=== PATIENT | male | born 1965 | race Caucasian/White ===

== ENCOUNTER 2016-11-10 18:19 | Emergency (ER) | payer OTHER ==
[2016-11-10 18:55] VITALS: BP 107/69
--- NOTE | 2016-11-10 19:43 | UC ---
Throat Pain/Nasal Balaji HPI - HPI Summary HPI Summary: ST with slight nasal congestion and slight cough today. Son also dx with strep today. Denies fever, vomiting, or rash. - History of Current Complaint Chief Complaint: EDThroatPain Stated Complaint: SORE THROAT Time Seen by Provider: 11/10/16 19:33 Hx Obtained From: Patient Onset/Duration: Gradual Onset, Lasting Hours Severity: Mild Cough: Nonproductive Associated Signs & Symptoms: Negative: Fever, Vomiting - Allergies/Home Medications Allergies/Adverse Reactions: Allergies Allergy/AdvReac Type Severity Reaction Status Date / Time No Known Allergies Allergy Verified 04/10/15 07:42 Home Medications: Home Medications Cetirizine* [ZyrTEC 10 MG TAB*] 10 mg PO DAILY 11/10/16 [History Confirmed 11/10] PMH/Surg Hx/FS Hx/Imm Hx Endocrine History Of: Denies: Diabetes, Thyroid Disease Cardiovascular History Of: Denies: Cardiac Disorders, Hypertension Respiratory History Of: Reports: Asthma - WILL BRING INHALERS Denies: COPD GI/ History Of: Denies: Ulcer - Surgical History Surgical History: Yes Surgery Procedure, Year, and Place: WISDOM TEETH, 1989. URETHERAL STRICTURE, 1992. 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 Alcohol Use: None Substance Use Type: None Smoking Status (MU): Former Smoker Amount Used/How Often: PACK A DAY Have You Smoked in the Last Year: No When Did the Patient Quit Smoking/Using Tobacco: 1986 Review of Systems Constitutional: Negative Skin: Negative Eyes: Negative ENT: Sore Throat Respiratory: Cough Cardiovascular: Negative Gastrointestinal: Negative Genitourinary: Negative Motor: Negative Neurovascular: Negative Musculoskeletal: Negative Neurological: Negative Psychological: Negative All Other Systems Reviewed And Are Negative: Yes Physical Exam Triage Information Reviewed: Yes Appearance: Well-Appearing, No Pain Distress, Well-Nourished Vital Signs: Initial Vital Signs Temp 98.0 F 11/10/16 18:48 Pulse 88 11/10/16 18:48 Resp 16 11/10/16 18:48 BP 107/69 11/10/16 18:48 Pulse Ox 100 11/10/16 18:48 Vital Signs Reviewed: Yes Eye Exam: Normal Eyes: Positive: Conjunctiva Clear ENT: Positive: Hearing grossly normal, Pharyngeal erythema - mild, TMs normal. Negative: Tonsillar exudate Dental Exam: Normal Neck exam: Normal Neck: Positive: Supple, Nontender, No Lymphadenopathy Respiratory Exam: Normal Respiratory: Positive: Chest non-tender, Lungs clear, Normal breath sounds, No respiratory distress, No accessory muscle use Cardiovascular Exam: Normal Cardiovascular: Positive: RRR, No Murmur Musculoskeletal Exam: Normal Neurological Exam: Normal Neurological: Positive: Alert Psychological Exam: Normal Throat Pain/Nasal Course/Dx - Differential Dx/Diagnosis Provider Diagnoses: URI, likely viral Discharge - Discharge Plan Condition: Stable Disposition: HOME Patient Education Materials: Upper Respiratory Infection (ED) Additional Instructions: Rapid strep test negative.
== END 2016-11-10 20:13 | disposition home or self-care (01) ==
LOC: UCEAST 18:19
DX: J06.9 Acute upper respiratory infection, unspecified (principal); J45.909 Unspecified asthma, uncomplicated; Z87.891 Personal history of nicotine dependence
CPT/HCPCS: 87651; 99211; G0463

== ENCOUNTER 2017-11-10 06:39 | Day surgery (SDC) | payer OTHER ==
--- NOTE | 2017-11-01 10:28 | HP ---
PREOPERATIVE HISTORY AND PHYSICAL: DATE OF ADMISSION/SURGERY: 11/10/17 ATTENDING PHYSICIAN: Dr. Sharron Howe CHIEF COMPLAINT: Left ringer finger locking and triggering. HISTORY OF PRESENT ILLNESS: Musa is a 52-year-old man who has history of multiple trigger fingers on the left hand. He has a trigger finger of the ring finger, which locks every morning when he wakes up and continues to lock throughout the course of the day. He has had relief with surgical treatment of trigger fingers in the past and presents now for the same on the left ring finger. PAST MEDICAL HISTORY: Significant for: 1. Asthma. 2. Depression and anxiety. 3. Irritable bowel syndrome. PAST SURGICAL HISTORY: 1. [place] tooth removal. 2. Cystoscopy. 3. Trigger finger releases. 4. Other genitourinary procedure. MEDICATIONS: 1. Pulmicort inhaler 2 puffs twice daily. 2. Myrbetriq 25 mg p.o. daily. DRUG ALLERGIES: None. FAMILY HISTORY: Noncontributory. SOCIAL HISTORY: He lives with his spouse. 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 He is a former tobacco user, does not currently use tobacco. Denies alcohol use and does exercise regularly. REVIEW OF SYSTEMS: Positive for seasonal allergies, but otherwise negative for cephalic, cardiovascular, respiratory, gastrointestinal, genitourinary, other musculoskeletal, skin, neurologic, endocrine, and hematologic symptoms. PHYSICAL EXAMINATION GENERAL: He is a very healthy-appearing, very pleasant male in minimal distress at rest. VITAL SIGNS: He is 5 feet 7 inches, weighs 142 pounds. Pulse 92, blood pressure 118/76, temperature 97.2. HEENT: Unremarkable. He has good range of motion of his neck without pain. No masses are palpated. His eye movements are concentric. LUNGS: Clear to auscultation. Good inspiratory effort. No wheezing. CARDIAC: Regular rate and rhythm without murmur. PERIPHERAL VASCULAR: He has palpable pulses and no peripheral edema. EXTREMITIES: He has tenderness at the A1 mesfin of his left ringer finger and it locks when he makes the fist. He is able to unlock it by passively extending it. His neurovascular function is intact NEUROLOGIC: He is alert and oriented without focal deficits. SKIN: Intact. IMPRESSION: Left ring finger trigger finger. PLAN: For left ring finger trigger release. The surgical procedure, risks, and benefits were explained to the patient today and he agreed to proceed. I will see him back in followup for suture removal approximately 10 days postop. [id number]/[facility] #: [id number] JOSE JUAN
[~2017-11-10 06:39] MED LIST: Buffered Lidocaine 0.9% SYRIN* 5 ML/SYR SYRINGE INTRADERM ONE; Famotidine TAB* 20 MG PO ONE
[2017-11-10] MEDS ORDERED: Famotidine TAB* 20 MG ONE (07:11)
[2017-11-10] MEDS ORDERED: fentaNYL* 50 MCG/ML 2 ML VIAL (100 MCG VIAL) ONE (07:38)
[2017-11-10] MEDS ORDERED: Midazolam* 1 MG/ML 5 ML VIAL (5 MG) ONE (07:38)
[2017-11-10] MEDS ORDERED: Naloxone* 0.4 MG/ML 1 ML VIAL IV PRN (08:05)
[2017-11-10] MEDS ORDERED: Acetaminophen TAB* 325 MG PO PRN (08:05)
[2017-11-10] MEDS ORDERED: Lidocaine 2% PF * 5 ML VIAL ONE (08:16)
[2017-11-10] MEDS ORDERED: Ketorolac INJ* 30 MG/ML 1 ML VIAL ONE (08:16)
[2017-11-10] MEDS ORDERED: Ondansetron INJ* 2 MG/ML VIAL ONE (08:16)
[2017-11-10] MEDS ORDERED: Propofol* 10 MG/ML 20 ML BTL IV PUSH ONE (08:16)
[2017-11-10 09:28] VITALS: BP 110/65
--- NOTE | 2017-11-10 13:06 | OP ---
DATE OF OPERATION: 11/10/17 [facility] DATE OF : 63 SURGEON: Sharron Howe MD. ORACLE EBS ARCHITECT: LYSSA Perkins. ANESTHESIA: Local MAC. PRE-OP DIAGNOSIS: Left ring finger, trigger finger. POST-OP DIAGNOSIS: Left ring finger, trigger finger. OPERATIVE PROCEDURE: Left ring finger, trigger release. ESTIMATED BLOOD LOSS: Zero. TOURNIQUET TIME: About 5 minutes. INDICATIONS FOR PROCEDURE: Musa is a 52-year-old man with triggering and locking with left ring finger. He presents for trigger release. DESCRIPTION OF PROCEDURE: The patient was brought to the operating room, was given a sedation anesthetic and a local infiltration of 10 cc of 1% plain lidocaine in the palm of his left hand overlying the ring finger A1 mesfin. The skin of his left hand and forearm were prepped and draped in the usual sterile fashion. The hand and forearm were exsanguinated and the tourniquet elevated to 250 mmHg. A transverse incision was made centered over the A1 mesfin and we dissected bluntly through the subcutaneous tissue down to the A1 mesfin. The digital neurovascular bundles were retracted by the assembler surgical garment Elo Rodriguez. The A1 mesfin was incised longitudinally completely releasing the flexor tendons which were in good condition. The wound was irrigated and the skin edges reapproximated with 4-0 nylon suture. The wound was dressed with Xeroform, 4 x 4, Webril, and an elijah wrap. The patient tolerated the procedure well and was brought to the recovery room in good condition. [id number]/[facility] #: [id number] MTDD
== END 2017-11-10 09:50 | disposition home or self-care (01) ==
LOC: OREAST 06:39
PROVIDERS: ATTEND Orthopaedic Surgery
DX: M65.342 Trigger finger, left ring finger (principal); J45.909 Unspecified asthma, uncomplicated; F41.8 Other specified anxiety disorders; K58.9 Irritable bowel syndrome, unspecified; Z87.891 Personal history of nicotine dependence
CPT/HCPCS: A9270-GY; J1885; J2250; J2405; J2704; J3010

== ENCOUNTER 2019-01-29 19:34 | Emergency (ER) | payer OTHER ==
--- NOTE | 2019-01-29 19:41 | UC ---
HPI BURN - HPI Summary HPI Summary: 53 yo male presents with burn to left hand. 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 He removed the oven mitt and grabbed the skillet again without realizing and sustained a burn to his hand. He rinsed it under cool water, but began to form some blistering and continued to have pain - prompting his visit to . He is right handed. - History of Current Complaint Stated Complaint: BURN ON HAND Time Seen by Provider: 01/29/19 19:41 Hx Obtained From: Patient Length of Exposure: Seconds Onset Severity: Severe Current Severity: Severe Pain Intensity: 9 Pain Scale Used: 0-10 Numeric Character: Blisters: Intact Alleviating Factor(s): Cool Soaks Associated Signs & Symptoms: Positive: Negative - Allergy/Home Medications Allergies/Adverse Reactions: Allergies Allergy/AdvReac Type Severity Reaction Status Date / Time No Known Allergies Allergy Verified 01/29/19 19:55 Home Medications: Home Medications Acetaminophen [Tylenol Extra Strength] 1,000 mg PO Q12HR PRN 01/29/19 [History Confirmed 01/29/19] Creatinine 1 pow XX DAILY 01/29/19 [History Confirmed 01/29/19] Loratadine [Claritin 10 MG CAP] 10 mg PO DAILY 01/29/19 [History Confirmed 01/29] Magnesium [Magnesium Elemental] 30 mg PO DAILY 01/29/19 [History Confirmed 01/29] PMH/Surg Hx/FS Hx/Imm Hx Respiratory History: Asthma Psychological History: Anxiety, Depression - Surgical History Surgical History: Yes Surgery Procedure, Year, and Place: WISDOM TEETH, 1989. URETHERAL STRICTURE, 1992. VARICOCELE 1993. 2 TRIGGER FINGER RELEASE - Family History Known Family History: Positive: Non-Contributory Negative: Blood Disorder - Social History Occupation: Employed Full-time Lives: With Family Alcohol Use: None Substance Use Type: None Smoking Status (MU): Former Smoker Amount Used/How Often: PACK A DAY X 6 YRS Have You Smoked in the Last Year: No When Did the Patient Quit Smoking/Using Tobacco: 1986 Review of Systems All Other Systems Reviewed And Are Negative: Yes Constitutional: Positive: Negative Skin: Positive: Other - Burn left hand Respiratory: Positive: Negative Cardiovascular: Positive: Negative Neurovascular: Positive: Negative Musculoskeletal: Positive: Negative Neurological: Positive: Negative Psychological: Positive: Negative Physical Exam - Summary Physical Exam Summary: GENERAL: NAD. WDWN. No pain distress. SKIN: LEFT HAND: 2nd, 3rd, and 4th finger pads with flesh colored 6-8mm flat blister formation. At base of 4th and 3rd digits palmar aspect with 1.5cm oval flat blister. No ruptured blisters, open wounds, necrotic or eschar. CHEST: No accessory muscle use. Breathing comfortably and in no distress. CV: Pulses intact. Cap refill <2seconds MSK: FROM at all digits PIPs, DIPs, and MCPs left hand. NEURO: Alert. PSYCH: Age appropriate behavior. Triage Information Reviewed: Yes Vital Signs: Vital Signs: Temp Pulse Resp BP Pulse Ox 98.4 F 91 18 138/91 95 01/29/19 19:58 01/29/19 19:58 01/29/19 19:58 01/29/19 19:58 01/29/19 19:58 Vital Signs Reviewed: Yes Burn Calculation - [place] Formula for Fluid Resuscitation 24 -Hour Fluid Replacement: 0.0 Course/Dx Burn - Course Course Of Treatment: Second degree burn to left hand <1% TBSA. In the clinic, his wedding ring on his 4th digit was able to be removed. He was given tramadol and toradol for his pain. Dr. Penny also visualized the andujar and we discussed appropriate dressings. The wounds were dressed with xeroform BT --> telfa --> kerlix. I will prescribe him percocet for discomfort and have him leave the dressing intact for the next 24 hours before removing and changing. Highly recommended a wound check in 2 days with PCP. - Diagnoses Provider Diagnosis: Burn of hand, left, second degree Discharge - Sign-Out/Discharge Documenting (check all that apply): Patient Departure All imaging exams completed and their final reports reviewed: No Studies - Discharge Plan Condition: Stable Disposition: HOME Prescriptions: oxyCODONE/Acetamin 5/325 MG* [Percocet 5/325 TAB*] 1 tab PO Q6H PRN #12 tab MDD 4 PRN Reason: Pain Patient Education Materials: Second Degree Burn (ED) Referrals: Shauna Larios MD [Primary Care Provider] - 2 Days Additional Instructions: If you develop a fever, shortness of breath, chest pain, new or worsening symptoms - please call your PCP or go to the ED immediately. Your blood pressure was high at todays visit. Please see your primary provider within 4 weeks for recheck and re-evaluation. Keep the dressing clean, dry, and intact for the next 24 hours and then may remove and apply bacitracin and a bandaid to the areas. I strongly recommend that you follow up with your primary doctor in 2 days for a wound check to make sure the andujar are healing well. May take ibuprofen as directed for discomfort in addition to the percocet. - Billing Disposition and Condition Condition: STABLE Disposition: Home
[2019-01-29 20:00] VITALS: BP 138/91
[2019-01-29] MEDS ORDERED: Ketorolac *IM* INJ* 60 MG/2 ML VIAL IM ONE (20:07)
[2019-01-29] MEDS ORDERED: oxyCODONE/Acetamin 5/325 MG* TAB PO ONE (20:07)
[2019-01-29] MEDS ORDERED: traMADol TAB* 50 MG PO ONE (20:22)
== END 2019-01-29 20:25 | disposition home or self-care (01) ==
LOC: UCEAST 19:34
DX: T23.252A Burn of second degree of left palm, initial encounter (principal); T31.0 Burns involving less than 10% of body surface; X19.XXXA Contact with other heat and hot substances, initial encounter; Y93.G3 Activity, cooking and baking; Y92.010 Kitchen of single-family (private) house as the place of occurrence of the external cause; Y99.8 Other external cause status; J45.909 Unspecified asthma, uncomplicated; F41.9 Anxiety disorder, unspecified; F32.9 Major depressive disorder, single episode, unspecified; Z87.891 Personal history of nicotine dependence
CPT/HCPCS: 16000; 96372; 99213; A9270-GY; G0463; J1885

== ENCOUNTER 2019-01-31 09:10 | Emergency (ER) | payer OTHER ==
[2019-01-31 09:17] VITALS: BP 111/70
--- NOTE | 2019-01-31 09:45 | UC ---
HPI Wound/Suture Re-check - HPI Summary HPI Summary: Pt here for recheck of 2nd andujar to left hand pt was evaluated at 2 days ago - grabbed hot amaya, blisters to index, middle and 5th digit as well as MCP 4th finger - all palmar aspect. Pt states his pain is nearly resolved. no reddness no weakness, no open wounds Pt was advised for a wound recheck - states could not get into PCP so came here - no concerns - satisfy with wound healing Unknown last tdap - called office - 2011 not immunocompromised no analgesia taken meds reviewed - History Of Current Complaint Chief Complaint: UCBurn Stated Complaint: WOUND RECHECK Time Seen by Provider: 01/31/19 09:44 Hx Obtained From: Patient, Medical Records Pain Intensity: 0 - Allergies/Home Medications Allergies/Adverse Reactions: Allergies Allergy/AdvReac Type Severity Reaction Status Date / Time No Known Allergies Allergy Verified 01/29/19 19:55 PMH/Surg Hx/FS Hx/Imm Hx Previously Healthy: Yes - Surgical History Surgical History: Yes Surgery Procedure, Year, and Place: WISDOM TEETH, 1989. URETHERAL STRICTURE, 1992. VARICOCELE 1993. 2 TRIGGER FINGER RELEASE - Family History Known Family History: Positive: Non-Contributory Negative: Blood Disorder - Social History Occupation: Employed Full-time Lives: With Family Alcohol Use: None Substance Use Type: None Smoking Status (MU): Former Smoker Amount Used/How Often: PACK A DAY X 6 YRS Have You Smoked in the Last Year: No When Did the Patient Quit Smoking/Using Tobacco: 1986 Review of Systems All Other Systems Reviewed And Are Negative: Yes Skin: Positive: Other - 2nd degree left palm Physical Exam - Summary Physical Exam Summary: Vital Signs Reviewed: Yes A+Ox3, no distress Eyes: Conjunctiva Clear ENT: Hearing grossly normal Neck: Positive: Supple Respiratory: Positive: No respiratory distress, No accessory muscle use Cardiovascular: CBT < 2 sec all digits Musculoskeletal Exam ful flex/ext MCP, PIP, DIP all digits left hand Neurological: Positive: Alert, + sensation throughout digits Psychological: Positive: Normal 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 civil process 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 Skin: Positive: no rash, no ecchymosisb, blisters distal phalynx index #4, #5 base MCP palmar aspect #4 blisters intact no erythema mild tendernss Triage Information Reviewed: Yes Vital Signs: Initial Vital Signs Temp 97.4 F 01/31/19 09:16 Pulse 83 01/31/19 09:16 Resp 17 01/31/19 09:16 BP 111/70 01/31/19 09:16 Pulse Ox 100 01/31/19 09:16 Course/Dx - Course Course Of Treatment: Pt presents for wound check - 2nd degree palmar andujar to left palmar aspect 2 days ago pain well controlled good ROM will update tetanus contiue wound care, return precautions pt in agreement with plan - Diagnosis Provider Diagnosis: Visit for wound check, Tetanus-diphtheria (Td) vaccination Discharge - Sign-Out/Discharge Documenting (check all that apply): Patient Departure All imaging exams completed and their final reports reviewed: No Studies - Discharge Plan Condition: Stable Disposition: HOME Patient Education Materials: Second Degree Burn (ED), Tdap and Td Vaccines for Adults (ED) Referrals: Shauna Larios MD [Primary Care Provider] - Additional Instructions: - continue to keep your wounds clean. It is recommended you keep covered with polysporin and bandage for a total of 5 days Then cover if you are working in a dirty environment - Okay to take ibuprofen (Advil, Motrin) 600mg every 6 hours for pain - monitor your wounds for signs of infection - reddness, red streaking, drainage or increased pain - you should be rechecked - If your finger feels stiff or you have difficulty with movement - it is recommended you follow-up with a hand specialist - you have been give contact information - you received a tetanus vaccination today - you may have arm discomfort today and tomorrow- this is normal Contact your doctor with questions or concerns - Billing Disposition and Condition Condition: STABLE Disposition: Home
[2019-01-31] MEDS ORDERED: Tetan/Diph/Pertus SYR(Tdap)* 0.5 ML SYR(BOOSTRIX) use SYR IM ONE (10:07)
== END 2019-01-31 10:25 | disposition home or self-care (01) ==
LOC: UCEAST 09:10
DX: T23.251D Burn of second degree of right palm, subsequent encounter (principal); T31.0 Burns involving less than 10% of body surface; X08.8XXD Exposure to other specified smoke, fire and flames, subsequent encounter; Z23 Encounter for immunization
CPT/HCPCS: 90471; 90715; 99212; G0463